=== PATIENT | female | born 1975 | race Two or more races ===

== ENCOUNTER 2021-05-18 14:38 | Emergency (ER) | payer BC ==
[~2021-05-18] VITALS: Ht 157.5 cm; Wt 74.8 kg
--- NOTE | 2021-05-18 14:38 | NUR ---
PT BIB SELF C/O HEADACHE STARTED SUNDAY. PT IS AAOX4, NOT IN RESPIRATORY DISTRESS, HOOKED TO [employer], KEPT RESTED AND COMFORTABLE. WILL CONTINUE TO MONITOR.
[2021-05-18] MEDS ORDERED: METOCLOPRAMIDE HCL 10 MG TABLET PO ONE (15:30)
[2021-05-18] MEDS ORDERED: SUMATRIPTAN SUCCINATE 6 MG/0.5 ML VIAL SQ ONE ×2 (15:30→15:59)
[2021-05-18] MEDS ORDERED: METOCLOPRAMIDE HCL 10 MG TABLET ONE (15:59)
[2021-05-18] MEDS ORDERED: diphenhydrAMINE HCL 25 MG CAPSULE ONE (16:16)
[2021-05-18] MEDS ORDERED: diphenhydrAMINE HCL ELIX 25 MG/10 ML UDC PO ONE (16:30)
--- NOTE | 2021-05-18 17:11 | NUR ---
Patient discharged to home in stable condition. Written and verbal after care instructions given. Patient verbalizes understanding of instruction. PT ambulatory with a steady gait
[2021-05-18 17:30] VITALS: BP 129/89
== END 2021-05-18 17:30 | disposition home or self-care (01) ==
LOC: ER 14:45
DX: R51.9 Headache, unspecified (principal); F07.81 Postconcussional syndrome; I10 Essential (primary) hypertension; E11.9 Type 2 diabetes mellitus without complications; E78.5 Hyperlipidemia, unspecified; Z88.6 Allergy status to analgesic agent
CPT/HCPCS: 70450; 96372; 99284; J3030; J8597; Q0163